=== PATIENT | female | born 1970 | race Two or more races ===

== ENCOUNTER 2018-08-23 18:30 | Emergency (ER) | payer BC ==
[~2018-08-23] VITALS: Ht 162.6 cm; Wt 50.0 kg
--- NOTE | 2018-08-23 18:41 | ED.ADGEN ---
Past History Past Medical History: Depression, Other Past Surgical History: Other Past Surgical History Breast implants. Adult General Chief Complaint Chief Complaint " Yells .. Moans..." HPI HPI Patient is a 48 year old female [place] who presents with hx of depression and possible OD. Pt. has long hx of depression since leaving [place] 2014. Pt. just recently had a divorce and family states this caused an acute exacerbation of her depression. Pt. has made suicidal threats verbal and E-mail. Pt. has had one prior suicide attempt and severe depression episode 2 yrs. ago. Pt. has threaten suicide in past, but this time family are concerned that may actually attempt. Daughters are at bed side and concerned she is high risk for suicide. Pt. has sent texts that she is going to kill herself. Telling her daughter s to take care of their younger brother. Her Brother in law is a Neurology physician here at [facility] also feels she is at very high risks for suicide. Pt. does work in [place]. Brother in law states she has also component of conversion disorder. Pt. does exhibit some borderline personality traits. Review of Systems Review of Systems Pt. refuses to answer questions All other systems were reviewed and found to be within normal limits, except as documented in this note. Family History Family History Only family member with marked depression. Current Medications Current Medications Current Medications Medications (Trade) Dose Ordered Sig/Car Start Time Stop Time Status Last Admin Dose Admin Ceftriaxone Sodium 1 gm/ Sodium Chloride 50 ml @ 100 mls/hr 1X ONCE 08/23/18 20:15 08/23/18 20:44 DC 08/23/18 20:55 100 MLS/HR Ceftriaxone Sodium (Rocephin) 1 gm STK-MED ONCE 08/23/18 20:52 08/23/18 20:53 DC Multivitamins/ Minerals 10 ml/ Folic Acid 1 mg/ Thiamine HCl 100 mg/Lactated Ringer's 1,011.2 ml @ 1,011.2 mls/hr 1X ONCE 08/23/18 19:00 08/23/18 19:59 DC 08/23/18 19:38 1,011.2 MLS/HR Olanzapine (ZyPREXA) 5 mg PRN QID PRN 08/24/18 03:00 Sodium Chloride 50 ml @ As Directed STK-MED ONCE 08/23/18 20:51 08/23/18 20:52 DC Ziprasidone (Geodon Im) 20 mg 1X PRN PRN 08/24/18 03:00 Ziprasidone (Geodon) 10 mg BID 08/24/18 09:00 UNV Allergies Allergies Allergies Uncoded Allergies Type Severity Reaction Last Updated Verified unknown Allergy Unknown 06/18/15 Physical Exam Physical Exam Constitutional: Well developed, well nourished, in acute emotional distress, at times sedate in appearance. []Tearful. Refuses to answer questions. At other times screaming. HENT: Normocephalic, atraumatic, bilateral external ears normal, oropharynx moist, no oral exudates, nose normal. [] Eyes: PERRLA, EOMI, conjunctiva normal, no discharge. [] Neck: Normal range of motion, no tenderness, supple, no stridor. [] Cardiovascular:Tachycardia Heart rate regular rhythm, no murmur [] Lungs & Thorax: Bilateral breath sounds equal at apexes on auscultation [] Breast implants. Abdomen: Bowel sounds normal, soft, no tenderness, no masses, no pulsatile masses. [] Skin: Warm, dry, no erythema, no rash. [] Back: No tenderness, no CVA tenderness. [] Extremities: No tenderness, no cyanosis, no clubbing, ROM intact, no edema. [] Moves all ext. with noxious stimuli. Neurologic: Responds to name, normal motor function with noxious stimuli, normal sensory function, no gross focal deficits appreciated. DTRs +2 patella and brachial. Psychologic: Affect flat, , judgement unable to determine, mood depressed. Current Patient Data Vital Signs Vital Signs Date Time Temp Pulse Resp B/P (MAP) Pulse Ox O2 Delivery O2 Flow Rate FiO2 08/24/18 01:30 85 20 105/65 (78) 98 Room Air Lab Results Laboratory Tests Test 08/23/18 18:40 08/23/18 19:00 08/23/18 19:24 08/23/18 20:30 White Blood Count 4.6 x10^3/uL (4.0-11.0) Red Blood Count 4.99 x10^6/uL (3.50-5.40) Hemoglobin 14.9 g/dL (12.0-15.5) Hematocrit 43.5 % (36.0-47.0) Mean Corpuscular Volume 87 fL (79-100) Mean Corpuscular Hemoglobin 30 pg (25-35) Mean Corpuscular Hemoglobin Concent 34 g/dL (31-37) Red Cell Distribution Width 13.9 % (11.5-14.5) Platelet Count 251 x10^3/uL (140-400) Neutrophils (%) (Auto) 59 % (31-73) Lymphocytes (%) (Auto) 33 % (24-48) Monocytes (%) (Auto) 8 % (0-9) Eosinophils (%) (Auto) 1 % (0-3) Basophils (%) (Auto) 1 % (0-3) Neutrophils # (Auto) 2.7 x10^3uL (1.8-7.7) Lymphocytes # (Auto) 1.5 x10^3/uL (1.0-4.8) Monocytes # (Auto) 0.3 x10^3/uL (0.0-1.1) Eosinophils # (Auto) 0.0 x10^3/uL (0.0-0.7) Basophils # (Auto) 0.0 x10^3/uL (0.0-0.2) Prothrombin Time 9.6 SEC (9.4-11.4) Prothrombin Time INR 1.0 (0.9-1.1) PTT 23 SEC (23-33) Urine Collection Type U cath Urine Color Yellow Urine Clarity Hazy Urine pH 5.0 Urine Specific [place] 1.020 Urine Protein Neg (NEG-TRACE) Urine Glucose (UA) Neg mg/dL (NEG) Urine Ketones (Stick) Neg mg/dL (NEG) Urine Blood Small (NEG) Urine Nitrite Pos (NEG) Urine Bilirubin Neg (NEG) Urine Urobilinogen Dipstick 0.2 mg/dL (0.2 mg/dL) Urine Leukocyte Esterase Trace (NEG) Urine RBC 0 /HPF (0-2) Urine WBC 11-20 /HPF (0-4) Urine Squamous Epithelial Cells Occ /LPF Urine Bacteria Many /HPF (0-FEW) Urine Mucus Slight /LPF Urine Opiates Screen Neg (NEG) Urine Methadone Screen Neg (NEG) Urine Barbiturates Neg (NEG) Urine Phencyclidine Screen Neg (NEG) Urine Amphetamine/Methamphetamine Neg (NEG) Urine Benzodiazepines Screen Neg (NEG) Urine Cocaine Screen Neg (NEG) Urine Cannabinoids Screen Neg (NEG) Urine Ethyl Alcohol Neg (NEG) POC Urine HCG, Qualitative hcg negative (Negative) Sodium Level 143 mmol/L (136-145) Potassium Level 3.4 mmol/L (3.5-5.1) L Chloride Level 108 mmol/L (98-107) H Carbon Dioxide Level 25 mmol/L (21-32) Anion Gap 10 (6-14) Blood Urea Nitrogen 11 mg/dL (7-20) Creatinine 0.6 mg/dL (0.6-1.0) Estimated GFR (Cockcroft-Gault) 107.6 Glucose Level 124 mg/dL (70-99) H Calcium Level 8.9 mg/dL (8.5-10.1) Magnesium Level 1.8 mg/dL (1.8-2.4) Salicylates Level 0.8 mg/dL (2.8-20.0) L Salicylate Last Dose Date Unk Salicylate Last Dose Time Unk Acetaminophen Level < 2.0 mcg/mL (10-30) L Acetaminophen Last Dose Date Unk Acetaminophen Last Dose Time Unk Ethyl Alcohol Level < 10 mg/dL (0-10) EKG EKG My interpretation EKG shows a sinus tachycardia cardia rhythm at 128 bpm. There is no acute morphology change from EKG completed 06-18-2015 Radiology/Procedures Radiology/Procedures My interpretation chest x-ray shows no acute cardiopulmonary changes. Normal cardiac silhouette. Breast implants.[] Rt. upper [place]- ?? Hair band. Course & Med Decision Making Course & Med Decision Making Pertinent Labs and Imaging studies reviewed. (See chart for details) Lab advised electrolytes need to be re-draw- 2019 hrs. Pt. now interactive verbal with family- two daughters and son. Did stand up and help nursing transport her to the bathroom. Now appears alert but still depressed and tearful.[id number]. Currently argument with family. No longer tachycardia after fluid bolus. Discussed case with Dr. Kirby- at 2359 hrs. See Psych. report . Mrs. Ryan is now requesting an restorative coordinator for the Psych. interview. Pt . connected with restorative coordinator and Dr. Kirby now will do psych. assessment. Tele- connection loss at 0015 hrs. recommend in hospital eval. for her Depressive Disorder.- See Report. 0200- Nader Jason advised the just lost their last female bed. 0215. Hrs. Pt. currently sleeping. [facility] full. . [facility] full. May have beds after 0700 hrs. [0300 Pt. now agrees to go to [facility] at 0[address] Jill Granger is accepting- for Depression Jl refuses transport until after shift change (0700 is shift change). 3:30. [facility] agrees to transport. Final Impression Final Impression 1. Suicidal Ideation 2. Depression 3. Conversion Disorder 4. UTI Dragon Disclaimer Dragon Disclaimer This electronic medical record was generated, in whole or in part, using a voice recognition dictation system. BRIDGETTE RODRIGUEZ MD Aug 23, 2018 18:41
[2018-08-23 18:56] LABS: BASO % 1 % (0-3); EOS % 1 % (0-3); HEMATOCRIT 43.5 % (36.0-47.0); HEMOGLOBIN 14.9 g/dL (12.0-15.5); LYMPH # 1.5 x10^3/uL (1.0-4.8); LYMPH % 33 % (24-48); MEAN CORPUSCULAR HEMOGLOBIN 30 pg (25-35); MEAN CORPUSCULAR HGB CONC 34 g/dL (31-37); MEAN CORPUSCULAR VOLUME 87 fL (79-100); MONO # 0.3 x10^3/uL (0.0-1.1); MONO % 8 % (0-9); NEUT # 2.7 x10^3uL (1.8-7.7); NEUT % 59 % (31-73); PLATELET COUNT 251 x10^3/uL (140-400); RED BLOOD COUNT 4.99 x10^6/uL (3.50-5.40); RED CELL DISTRIBUTION WIDTH 13.9 % (11.5-14.5); WHITE BLOOD COUNT 4.6 x10^3/uL (4.0-11.0)
[2018-08-23] MEDS ORDERED: MVI, ADULT NO.4 WITH VIT K 10 ML, FOLIC ACID SYRINGE for ER 1 MG, THIAMINE INJ 100 MG i... IV ONE ×4 (19:00)
[2018-08-23 19:48] LABS: AMPHETAMINE/METHAMPHETAMINE NEG (NEG); BARBITURATES NEG (NEG); BENZODIAZEPINES NEG (NEG); CANNABINOIDS NEG (NEG); COCAINE NEG (NEG); METHADONE NEG (NEG); OPIATES NEG (NEG); PHENCYCLIDINE NEG (NEG)
--- NOTE | 2018-08-23 19:55 | RAD ---
EXAM: CHEST 1 VIEW. HISTORY: Lethargy, weakness, overdose. COMPARISON: 06/18/2015. FINDINGS: A frontal view of the chest is obtained. There are no confluent infiltrates. There is no pneumothorax or pleural effusion. The heart is not enlarged. Bilateral breast implants are noted. There is a mild broad S-shaped thoracolumbar scoliosis. IMPRESSION: 1. No confluent infiltrates. Electronically signed by: Tyson Perez MD (08/23/2018 7:52 PM) [facility]
[2018-08-23 20:00] LABS: BACTERIA,URINE MANY /HPF (0-FEW); BILIRUBIN,URINE NEG (NEG); CLARITY,URINE HAZY; COLOR,URINE YELLOW; GLUCOSE,URINE NEG (NEG); NITRITE,URINE POS (NEG); RBC,URINE 0 /HPF (0-2); SQUAMOUS EPITHELIAL CELL,UR OCC /LPF; UROBILINOGEN,URINE 0.2 mg/dL (0.2 mg/dL)
[2018-08-23] MEDS ORDERED: IV NORMAL SALINE 50ML 50 ML ONE (20:51)
[2018-08-23] MEDS ORDERED: cefTRIAXone SODIUM 1 GM VIAL IV ONE (20:52)
[2018-08-23 21:04] LABS: CALCIUM 8.9 mg/dL (8.5-10.1); CREATININE 0.6 mg/dL (0.6-1.0); GFR 107.6; MAGNESIUM 1.8 mg/dL (1.8-2.4); POTASSIUM 3.4 mmol/L (3.5-5.1)
[2018-08-23 21:08] LABS: SALIC 0.8 mg/dL (2.8-20.0)
[2018-08-23 21:09] LABS: ACETAMIN < 2.0 mcg/mL (10-30); ETHANOL < 10 mg/dL (0-10)
[2018-08-24] MEDS ORDERED: OLANZapine 2.5 MG TABLET PO PRN (03:00)
[2018-08-24] MEDS ORDERED: ZIPRASIDONE IM 20 MG VIAL. IM PRN (03:00)
[2018-08-24 05:30] VITALS: BP 100/64
[2018-08-24] MEDS ORDERED: ZIPRASIDONE 20 MG CAPSULE. PO SCH (09:00)
--- NOTE | 2018-08-24 18:55 | EKG ---
[address] [address] Test Date: 2018-08-23 Test Time: 18:37:48 Pat Name: SEDA VALDERRAMA Department: Room: Gender: F Bench Assembly Inspector: : 1970 Requested By: BRIDGETTE RODRIGUEZ Order Number: [id number] Reading MD: Rohan Brennan MD Measurements Intervals [place] Rate: 128 P: 53 ID: [id number] QRS: 62 QRSD: 72 T: 41 QT: 296 QTc: 435 Interpretive Statements SINUS TACHYCARDIA Electronically Signed On 08-25-2018 12:26:19 CDT by Rohan Brennan MD
== END 2018-08-24 05:01 | disposition short-term general hospital (02) ==
LOC: ER 18:30
DX: R45.851 Suicidal ideations (principal); F32.9 Major depressive disorder, single episode, unspecified; F44.9 Dissociative and conversion disorder, unspecified; N39.0 Urinary tract infection, site not specified; Z91.5 Personal history of self-harm
CPT/HCPCS: 36415; 71045; 80048; 80307; 81001; 81025; 83735; 85025; 85610; 85730; 87086; 93005; 96365; 96367; 99285; G0480; G6039; J0696; J7120; 87186; 82003; G0479

== ENCOUNTER 2018-12-03 19:20 | Emergency (ER) | payer BC ==
[~2018-12-03] VITALS: Ht 152.4 cm; Wt 54.0 kg
[2018-12-03] MEDS ORDERED: IOHEXOL 300 MG/ML 75 ML VIAL. IV ONE (19:45)
[2018-12-03] MEDS ORDERED: ONDANSETRON PF 4 MG/2 ML VIAL. IV ONE (19:45)
[2018-12-03] MEDS ORDERED: IV NORMAL SALINE 1,000ML 1,000 ML IV ONE (19:45)
[2018-12-03] MEDS ORDERED: MORPHINE SULFATE 4 MG/ML DISP.SYRIN. IV ONE (19:45)
[2018-12-03] MEDS ORDERED: KETOROLAC 30 MG/ML VIAL. IV ONE (19:45)
[2018-12-03 20:30] LABS: BILIRUBIN,URINE NEG (NEG); CLARITY,URINE HAZY; COLOR,URINE YELLOW; GLUCOSE,URINE NEG (NEG); NITRITE,URINE POS (NEG); UROBILINOGEN,URINE 0.2 mg/dL (0.2 mg/dL)
[2018-12-03 20:31] LABS: BACTERIA,URINE MANY /HPF (0-FEW); SQUAMOUS EPITHELIAL CELL,UR FEW /LPF; WBC,URINE >40 /HPF (0-4)
--- NOTE | 2018-12-03 20:51 | RAD ---
CT ABD PELV W/ IV CONTRST ONLY Indication: Omni 300, 75ml IV. RLQ abdominal pain, radiating to back. Hx breast augmentation. No previous injury or abdominal surgery Exposure: One or more of the following individualized dose reduction techniques were utilized for this examination: 1. Automated exposure control 2. Adjustment of the mA and/or kV according to patient size 3. Use of iterative reconstruction technique. Comparison: None are available. Contrast: Intravenous contrast was given. No oral contrast per request. FINDINGS: Lower thorax: Lung bases are clear. Liver: Unremarkable Spleen: Unremarkable Pancreas: Poorly defined and from adjacent unopacified bowel. No definite abnormality. Adrenals: No evidence of mass. Kidneys: Several areas of ill-defined hypoattenuation in the upper pole of the right kidney. These may represent areas of pyelonephritis or hypoperfusion versus focal lesions. Left kidney demonstrates uniform enhancement. No significant perinephric stranding. Urinary tracts: No hydronephrosis. Gallbladder: No calcified stone Lymph nodes: No significant enlargement Vessels: Aorta is nonaneurysmal. GI tract: Mild wall thickening of the rectum and distal sigmoid colon. Mild stool throughout the colon with gas. Mild fluid distention throughout the small bowel without gross dilatation. Appendix measures 5 mm diameter. However, there is mild enhancement and thickening of the wall. There is also minimal periappendiceal stranding. Reproductive organs: The uterus is diffusely enlarged and heterogeneous. Could be due to fibroids but nonspecific. Urinary bladder: Urinary bladder wall thickening. Peritoneum: No evidence of pneumoperitoneum. No free fluid. Abdominal wall:Unremarkable Spine: Vertebral body height and alignment are intact. Bones: No destructive process identified. External Soft Tissue: The inferior most aspect of bilateral breast implants is noted. IMPRESSION: 1. Small patchy areas of hypoattenuation at the upper pole the right kidney. Could represent foci of pyelonephritis. Renal infarction or renal mass is also possible. Depending on clinical correlation, recommend follow-up CT imaging with renal protocol, or MRI. 2. Mild wall thickening of the rectum and distal sigmoid colon nonspecific but most likely due to colitis/proctitis. Mild fluid throughout the small bowel compatible with a mild ileus. 3. The appendix is not dilated. However, the appendiceal wall demonstrates mild hyperenhancement and ill-definition consistent with mild inflammation, with mild surrounding stranding. Therefore, consider mild or early appendicitis. 4. Enlarged and heterogeneous uterus, could represent fibroids. Pelvic ultrasound could further evaluate. 5. Urinary bladder wall thickening, suggesting cystitis. Electronically signed by: Kurtis Lyn MD (12/03/2018 8:47 PM) [facility]
[2018-12-03] MEDS ORDERED: cefTRIAXone SODIUM 1 GM VIAL IV ONE (21:09)
[2018-12-03] MEDS ORDERED: IV NORMAL SALINE 50ML 50 ML ONE (21:09)
[2018-12-03 21:11] LABS: BASO % 0 % (0-3); EOS % 0 % (0-3); HEMATOCRIT 38.6 % (36.0-47.0); HEMOGLOBIN 13.1 g/dL (12.0-15.5); LYMPH # 0.9 x10^3/uL (1.0-4.8); LYMPH % 12 % (24-48); MEAN CORPUSCULAR HEMOGLOBIN 30 pg (25-35); MEAN CORPUSCULAR HGB CONC 34 g/dL (31-37); MEAN CORPUSCULAR VOLUME 87 fL (79-100); MONO # 0.5 x10^3/uL (0.0-1.1); MONO % 7 % (0-9); NEUT # 6.4 x10^3uL (1.8-7.7); NEUT % 81 % (31-73); PLATELET COUNT 222 x10^3/uL (140-400); RED BLOOD COUNT 4.44 x10^6/uL (3.50-5.40); RED CELL DISTRIBUTION WIDTH 12.8 % (11.5-14.5); WHITE BLOOD COUNT 7.9 x10^3/uL (4.0-11.0)
[2018-12-03 21:16] LABS: ALBUMIN 3.6 g/dL (3.4-5.0); ALBUMIN/GLOBULIN RATIO 0.8 (1.0-1.7); CALCIUM 9.5 mg/dL (8.5-10.1); CREATININE 0.7 mg/dL (0.6-1.0); GFR 90.1; POTASSIUM 4.1 mmol/L (3.5-5.1); TOTAL BILIRUBIN 0.3 mg/dL (0.2-1.0); TOTAL PROTEIN 7.9 g/dL (6.4-8.2)
[2018-12-03 22:20] VITALS: BP 133/73
--- NOTE | 2019-01-01 05:54 | PHYS DOC ---
Adult General Chief Complaint Chief Complaint Abdominal pain HPI HPI 48 years old female presented a ER with abdominal pain in the right lower quadrant she was seen and evaluated by her primary doctor who started on antibiotic for UTI she described her pain as a sharp constant pain in the right lower quadrant associated with nausea Review of Systems Review of Systems Constitutional: Denies fever or chills [] Eyes: Denies change in visual acuity, redness, or eye pain [] HENT: Denies nasal congestion or sore throat [] Respiratory: Denies cough or shortness of breath [] Cardiovascular: No additional information not addressed in HPI [] GI: Denies, vomiting, bloody stools or diarrhea [] : Denies dysuria or hematuria [] Musculoskeletal: Denies back pain or joint pain [] Integument: Denies rash or skin lesions [] Neurologic: Denies headache, focal weakness or sensory changes [] Endocrine: Denies polyuria or polydipsia [] All other systems were reviewed and found to be within normal limits, except as documented in this note. Current Medications Current Medications Current Medications Medications (Trade) Dose Ordered Sig/Car Start Time Stop Time Status Last Admin Dose Admin Ceftriaxone Sodium 1 gm/ Sodium Chloride 50 ml @ 100 mls/hr 1X ONCE 12/03/18 21:00 12/03/18 21:29 DC 12/03/18 21:15 100 MLS/HR Ceftriaxone Sodium (Rocephin) 1 gm STK-MED ONCE 12/03/18 21:09 12/03/18 21:11 DC Iohexol (Omnipaque 300 Mg/ml) 75 ml 1X ONCE 12/03/18 19:45 12/03/18 19:56 DC 12/03/18 20:20 75 ML Ketorolac Tromethamine (Toradol 30mg Vial) 30 mg 1X ONCE 12/03/18 19:45 12/03/18 19:46 DC 12/03/18 20:23 30 MG Morphine Sulfate (Morphine 4mg Syringe) 4 mg 1X ONCE 12/03/18 19:45 12/03/18 19:46 DC 12/03/18 20:23 4 MG Ondansetron HCl (Zofran) 4 mg 1X ONCE 12/03/18 19:45 12/03/18 19:46 DC 12/03/18 20:23 4 MG Sodium Chloride 50 ml @ As Directed STK-MED ONCE 12/03/18 21:09 12/03/18 21:11 DC Allergies Allergies Allergies Coded Allergies Type Severity Reaction Last Updated Verified No Known Drug Allergies 12/03/18 No Physical Exam Physical Exam Constitutional: Well developed, well nourished, no acute distress, non-toxic appearance. [] HENT: Normocephalic, atraumatic, bilateral external ears normal, oropharynx moist, no oral exudates, nose normal. [] Eyes: PERRLA, EOMI, conjunctiva normal, no discharge. [] Neck: Normal range of motion, no tenderness, supple, no stridor. [] Cardiovascular:Heart rate regular rhythm, no murmur [] Lungs & Thorax: Bilateral breath sounds clear to auscultation [] Abdomen: Bowel sounds normal, soft, + tenderness, no masses, no pulsatile masses. [] Skin: Warm, dry, no erythema, no rash. [] Back: No tenderness, no CVA tenderness. [] Extremities: No tenderness, no cyanosis, no clubbing, ROM intact, no edema. [] Neurologic: Alert and oriented X 3, normal motor function, normal sensory function, no focal deficits noted. [] Psychologic: Affect normal, judgement normal, mood normal. [] Current Patient Data Lab Results Laboratory Tests Test 12/03/18 19:55 12/03/18 20:05 12/03/18 20:13 White Blood Count 7.9 x10^3/uL (4.0-11.0) Red Blood Count 4.44 x10^6/uL (3.50-5.40) Hemoglobin 13.1 g/dL (12.0-15.5) Hematocrit 38.6 % (36.0-47.0) Mean Corpuscular Volume 87 fL (79-100) Mean Corpuscular Hemoglobin 30 pg (25-35) Mean Corpuscular Hemoglobin Concent 34 g/dL (31-37) Red Cell Distribution Width 12.8 % (11.5-14.5) Platelet Count 222 x10^3/uL (140-400) Neutrophils (%) (Auto) 81 % (31-73) H Lymphocytes (%) (Auto) 12 % (24-48) L Monocytes (%) (Auto) 7 % (0-9) Eosinophils (%) (Auto) 0 % (0-3) Basophils (%) (Auto) 0 % (0-3) Neutrophils # (Auto) 6.4 x10^3uL (1.8-7.7) Lymphocytes # (Auto) 0.9 x10^3/uL (1.0-4.8) L Monocytes # (Auto) 0.5 x10^3/uL (0.0-1.1) Eosinophils # (Auto) 0.0 x10^3/uL (0.0-0.7) Basophils # (Auto) 0.0 x10^3/uL (0.0-0.2) Sodium Level 139 mmol/L (136-145) Potassium Level 4.1 mmol/L (3.5-5.1) Chloride Level 102 mmol/L (98-107) Carbon Dioxide Level 25 mmol/L (21-32) Anion Gap 12 (6-14) Blood Urea Nitrogen 10 mg/dL (7-20) Creatinine 0.7 mg/dL (0.6-1.0) Estimated GFR (Cockcroft-Gault) 90.1 BUN/Creatinine Ratio 14 (6-20) Glucose Level 85 mg/dL (70-99) Calcium Level 9.5 mg/dL (8.5-10.1) Total Bilirubin 0.3 mg/dL (0.2-1.0) Aspartate Amino Transferase (AST) 22 U/L (15-37) Alanine Aminotransferase (ALT) 19 U/L (14-59) Alkaline Phosphatase 69 U/L (46-116) Total Protein 7.9 g/dL (6.4-8.2) Albumin 3.6 g/dL (3.4-5.0) Albumin/Globulin Ratio 0.8 (1.0-1.7) L Lipase 217 U/L (73-393) Urine Collection Type Unknown Urine Color Yellow Urine Clarity Hazy Urine pH 6.5 Urine Specific [place] 1.015 Urine Protein 100 mg/dl (NEG-TRACE) Urine Glucose (UA) Neg mg/dL (NEG) Urine Ketones (Stick) Neg mg/dL (NEG) Urine Blood Small (NEG) Urine Nitrite Pos (NEG) Urine Bilirubin Neg (NEG) Urine Urobilinogen Dipstick 0.2 mg/dL (0.2 mg/dL) Urine Leukocyte Esterase Mod (NEG) Urine RBC 3-5 /HPF (0-2) Urine WBC >40 /HPF (0-4) Urine Squamous Epithelial Cells Few /LPF Urine Bacteria Many /HPF (0-FEW) POC Urine HCG, Qualitative hcg negative (Negative) Microbiology 12/03/18 Urine Culture - Final, Complete 12/03/18 Urine Culture Result 1 (REX) - Final, Complete 12/03/18 Antimicrobic Susceptibility - Final, Complete EKG EKG [] Radiology/Procedures Radiology/Procedures [] Course & Med Decision Making Course & Med Decision Making Pertinent Labs and Imaging studies reviewed. (See chart for details) [] Final Impression Final Impression [] Problems: (1) Pyelonephritis Dragon Disclaimer Dragon Disclaimer This electronic medical record was generated, in whole or in part, using a voice recognition dictation system. SHAWNA HAUSER MD Jan 01, 2019 05:54
== END 2018-12-04 00:01 | disposition short-term general hospital (02) ==
LOC: ER 19:20
DX: K37 Unspecified appendicitis (principal)
CPT/HCPCS: 36415; 74177; 80053; 81001; 81025; 83690; 85025; 87086; 87186; 96365; 96375; 99285; J0696; J1885; J2270; J2405; Q9967; J7030

== ENCOUNTER → 2020-04-30 | Outpatient (CLI) | payer BC ==
--- NOTE | 2020-05-01 14:47 | RAD ---
DATE: 04/30/2020 11:06 AM EXAM: DIGITAL SCREEN BILAT W/CAD HISTORY: Baseline screening. COMPARISON: None Bilateral full field craniocaudal and mediolateral oblique images were obtained using digital technique. Implant displaced bilateral CC and MLO views were also obtained. Computer-aided detection was utilized. FINDINGS: Breast Density: HETERO The breast parenchyma Is heterogeneously dense, which could reduce sensitivity of mammography. Breast parenchyma level C Bilateral subpectoral saline implants are partially imaged. No suspicious masses, microcalcifications or architectural distortion is present to suggest malignancy in either breast. The visualized axillae are unremarkable. IMPRESSION: No mammographic evidence of malignancy. BI-RADS CATEGORY: 1 NEGATIVE RECOMMENDED FOLLOW-UP: 12M 12 MONTH FOLLOW-UP Annual screening mammography is recommended, unless clinically indicated sooner based on symptoms or change in physical exam. PQRS compliance statement: Patient information was entered into a reminder system with a target due date 05/01/2021 for the next mammogram. Mammography is a sensitive method for finding small breast cancers, but it does not detect them all and is not a substitute for careful clinical examination. A negative mammogram does not negate a clinically suspicious finding and should not result in delay in biopsying a clinically suspicious abnormality. "Our facility is accredited by the [employer] Mammography Program."
== END ==
LOC: MAMMO 11:02
PROVIDERS: ATTEND Obstetrics & Gynecology
DX: Z12.31 Encounter for screening mammogram for malignant neoplasm of breast (principal)
CPT/HCPCS: 77067